=== PATIENT | female | born 1960 | race Caucasian/White ===

== ENCOUNTER 2020-04-19 11:41 | Day surgery (SDC) | payer OTHER ==
[~2020-04-19] VITALS: Ht 154.9 cm; Wt 84.1 kg
[2020-04-19 12:05] LABS: BASOPHILS 1.3 % (0-2); EOSINOPHILS 11.8 % (0-7); HEMATOCRIT 44.6 % (36.0-48.0); HEMOGLOBIN 13.8 g/dL (12-16); IMMATURE GRANULOCYTES 0.1 % (0-5); LYMPHOCYTES 30.7 % (15-50); MCH 29.2 pg (26.0-34.0); MCHC 30.9 g/dL (31.0-37.0); MCV 94.5 fL (80.0-100.0); MEAN PLATELET VOLUME 9.2 fL (7.4-10.4); MONOCYTES 6.1 % (2-11); PLATELET COUNT 285 10x3/uL (130-400); RBC 4.72 10x6/uL (4.00-5.40); RDW 13.4 % (11.5-14.5); WBC 6.9 10x3/uL (4.8-10.8)
[2020-04-19 12:14] LABS: CALC OSMOLALITY 276 mosm/kg (275-300); CALCIUM 8.9 mg/dL (8.5-10.1); CHLORIDE - SERUM 105 mmol/L (98-107); CREATININE - SERUM 0.8 mg/dL (0.6-1.3); GLUCOSE 98 mg/dL (74-106); POTASSIUM - SERUM 3.9 mmol/L (3.5-5.1); SODIUM 140 mmol/L (136-145); UREA NITROGEN 8 mg/dL (7-18); eGFR NON AFRICAN AMERICAN 78 mL/min (90-120)
[2020-04-19] MEDS ORDERED: CO Q-10400 MG PO (12:44)
[2020-04-19] MEDS ORDERED: VITAMIN C500 MG PO (12:44)
[2020-04-19] MEDS ORDERED: CITRACAL + D E1 EACH PO (12:45)
[2020-04-19] MEDS ORDERED: NASONEX NASAL S17 GM NS (12:45)
[2020-04-19] MEDS ORDERED: KRILL OIL 1,001 EAC1 PO (12:45)
[2020-04-19] MEDS ORDERED: MERIBIN5 MG PO (12:46)
[2020-04-19] MEDS ORDERED: CLARITIN 10 MG10 MG PO (12:46)
[2020-04-19] MEDS ORDERED: PROBIOTIC1 EAC1 PO (12:46)
[2020-04-19] MEDS ORDERED: SUPER B COMPLE1 EAC1 PO (12:47)
[2020-04-19] MEDS ORDERED: ADVAIR 250-501 EAC1 INH (12:47)
[2020-04-19] MEDS ORDERED: FEXOFENADINE HC60 MG PO (12:48)
[2020-04-19] MEDS ORDERED: TIROSINT112 MCG PO (12:48)
[2020-04-19] MEDS ORDERED: IPRAT-ALBUT 0.5-3 ML UPD (12:49)
[2020-04-19] MEDS ORDERED: PROAIR HFA8.5 G1 INH (12:49)
[2020-04-19 12:50] VITALS: BP 127/65; Ht 154.9 cm; Wt 84.1 kg
--- NOTE | 2020-04-19 14:52 | NUR ---
1450 DR. BRIANNA JONES.
--- NOTE | 2020-04-20 15:39 | OP ---
PATIENT NAME: JULIO C CHAUDHARI MEDICAL RECORD: [id number] :62 LOCATION:[facility] ADMISSION DATE: SURGEON: KIM REED DO DATE OF OPERATION: 04/19/2020 PROCEDURE: EGD with biopsies and injection. INDICATIONS FOR THE PROCEDURE: Dysphagia. SCOPE: Olympus video gastroscope. MEDICATIONS: Propofol 300 mg IV per anesthesia. ESTIMATED BLOOD LOSS: Minimal. COMPLICATIONS: None. FINDINGS: Informed consent was given. The patient was made comfortable with the above medication. After reaching an adequate level of sedation by slow IV push, the patient was placed on her left side. The endoscope was advanced under direct visualization through the mouth to the third portion of the duodenum. In the upper esophagus, there was a small plaque which could be a papilloma. It was removed using cold forceps and submitted for histopathology. Cold forceps biopsies were taken randomly from the upper to mid esophagus to rule out the presence of eosinophils based on the patient's history of dysphagia. 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 The segment was approximately 4 cm in length from 30-34 cm. Cold forceps, biopsies were taken at 33 cm and at 31 cm to submit for histopathology. There was no obvious dysplasia by endoscopic appearance. Both white light and NBI were used to evaluate the tissue. The endoscope was advanced beyond the GE junction into the stomach and retroflexed to view the cardia, where a small sliding hiatal hernia was present. There were no associated ulcers or other abnormalities with this hernia. The fundus and body of the stomach appeared normal. The antrum appeared normal. Cold forceps, biopsies were taken from the antrum and incisura to submit for histopathology and to rule out the presence of H. pylori. The endoscope was advanced beyond the pylorus into the duodenum. The duodenal bulb appeared normal. In the junction from the second to the third portion of the duodenum, there was a mass which measured approximately 2-3 cm in size. Multiple biopsies were taken from this mass and tattoo was injected both proximally and distally to this site for future interventions. Appearances were concerning for malignancy. The endoscope was then withdrawn from the patient. The patient tolerated the procedure well and there were no immediate complications. IMPRESSION: 1. Upper esophageal plaque/possible papilloma status post biopsies. 2. 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 3. Small sliding hiatal hernia. 4. Duodenal mass. PLAN AND RECOMMENDATIONS: 1. Discharge home when recovery parameters are met. 2. Follow up biopsy specimen results. 3. GERD diet and reflux precautions. OPERATIVE REPORT [id number] JULIO C CHAUDHARI 4. Continue current medications. 5. Omeprazole 40 mg capsule in the morning. 6. Further intervention of the duodenal mass will be dependent on results of biopsy specimens. This will likely need a referral to surgery for resection. 7. Consider CT abdomen and pelvis based on path results. 8. Consider surgical repair of the hiatal hernia, based on reflux and Baird esophagus along with dysphagia. TRANSINT:[id number] Voice Confirmation ID: [id number] DOCUMENT ID: [id number] KIM REED DO at 1539 CC: [id number] DICTATION DATE: 04/19/20 1452 CLERICAL ORDER FILLER: 04/20/20 0027 [facility] 04/19/20 [facility] [address] [place] [address]
== END 2020-04-19 15:40 | disposition home or self-care (01) ==
LOC: D.OPS 11:41
PROVIDERS: Anesthesiology; ATTEND Internal Medicine Gastroenterology
DX: R13.10 Dysphagia, unspecified (principal); J44.9 Chronic obstructive pulmonary disease, unspecified; E07.9 Disorder of thyroid, unspecified

== ENCOUNTER 2020-06-02 15:15 | Inpatient (IN) | payer OTHER ==
[~2020-06-02] VITALS: Ht 154.9 cm; Wt 118.7 kg
--- NOTE | ~2020-06-02 | OP ---
PATIENT NAME: JULIO C CHAUDHARI MEDICAL RECORD: [id number] :62 LOCATION[facility] D.2302 ADMISSION DATE:06/08/20 SURGEON: JOSE SUTTON MD DATE OF OPERATION: 06/08/2020 PREOPERATIVE DIAGNOSES: 1. Duodenal adenoma. 2. Gastroesophageal reflux disease. 3. Baird esophagus. 4. Chronic obstructive pulmonary disease. POSTOPERATIVE DIAGNOSES: 1. Duodenal adenoma. 2. Gastroesophageal reflux disease. 3. Baird esophagus. 4. Chronic obstructive pulmonary disease. PROCEDURE: 1. Juan A fundoplication. 2. Whipple procedure. SURGEON: Jose Sutton MD REPORT OF PROCEDURE: The patient's abdomen was prepped and draped in sterile fashion. A skin incision was made in the midline. Electrocautery was used to dissect through the subcutaneous tissues and fascia until we entered the abdominal cavity. The preperitoneal fat pad was removed including the falciform ligament. Once we had this in place, we could visualize the patient's abdominal cavity. The patient had a very large liver which had some fatty infiltrate to it. There are no signs of cirrhotic changes. We were able to manipulate the left lobe of the liver and take down the triangular ligament so we can mobilize this left lobe more medially. When doing this, I could feel the patient's NG tube in position penetrating past the esophagus into the stomach and went ahead and took down the lesser omentum using electrocautery and the EnSeal device. We then took down the superior third short gastrics using the EnSeal device and at this point, we could manipulate the patient's stomach and we got underneath it. I was able to take down any attachments around the patient's GE junction. Once we did this, we could see the distal end of the patient's esophagus easily rested in the abdominal cavity. There did not appear to be much in the way of a hiatal hernia. I went ahead and reapproximated the esophageal hiatus with interrupted 2-0 Ethilon times 3. We then performed a 360-degree posterior wrap of the fundus of the stomach around the distal esophagus. This was done with interrupted 0 Polydeks times 3. The wrap did not appear to be very tight and everything appeared to rest in good position. At this point, we began our Whipple procedure. We started out by doing a dome down cholecystectomy. We did this by taking down the attachments over the gallbladder and then taking the dome of the gallbladder down off of the liver bed down to the cystic structures. The cystic duct and cystic artery were found, the cystic artery was clipped twice distally and once proximally and ligated in standard fashion. The cystic duct was clipped once proximally and twice distally and also ligated. This was then sent off for permanent specimen. We dissected out the patient's common bile duct and was able to find it. It penetrated down towards the duodenum and pancreas. We were able to dissect out the common hepatic duct just above the patient's cystic duct. We then went more medially and was able to find the patient's portal vein and this was protected and we also found the OPERATIVE REPORT [id number] JULIO C CHAUDHARI gastroduodenal artery and all of its branching vessels. The gastroduodenal artery was ligated with clips and a 3-0 silk tie. We then performed a Elizabeth maneuver of the duodenum, and at this point, we could see the tattooing that have been done on the second and third portion of the duodenum. We were able to mobilize this portion of the duodenum up including the head of the pancreas. We then entered the lesser sac by dissecting the omentum off of the patient's transverse colon and then penetrating underneath the stomach using an EnSeal device. With this, we could see the pancreas more clearly and we were able to score the peritoneum overlying this and I was able to bluntly dissect over the portal vein just below the neck of the pancreas. A Tammy was then placed into this space. We then transected the patient's stomach using a 75 green load LUCINDA stapler, removing the antrum of the stomach. The mesentery that was left was tied off with 3-0 silks. We then transected the pancreas using electrocautery and then transected the patient's bile duct using Metzenbaum scissors. We then found the ligament of Treitz and was able to find a section of small bowel about 8 cm past this. We made a small window at the mesentery and transected this small bowel with a 75 blue load LUCINDA stapler. The mesentery was then taken down with sequential clamp and tie technique and also with Harmonic scalpel. We were able to eventually eviscerate this small bowel through the ligament of Treitz into the lesser sac. At this point, we were able to take down the final attachments of the pancreas off the patient's portal vein, and at this time, the specimen was completely freed up and sent off for frozen evaluation. I had them look to see if the mass was present in the duodenum and I found a 2.6 cm adenomatous polyp present. We then irrigated the abdominal cavity out. The small bowel was transected about 30 cm downstream using a 75 blue load LUCINDA stapler and the mesentery was taken down with 3-0 silk ties. We then went about 45 cm down the downstream of the small bowel and performed a jejunojejunostomy in a nimf-gz-pzyx fashion using a 75 blue load LUCINDA stapler. The enterotomies were closed off with a 30 blue load TA stapler and oversewed the staple lines with 3-0 silks. At this point, I noticed that the small bowel, Wilma limb was actually a little bit swollen and congested appearing. I could feel a pulse at the base of this and we were able to find signals throughout the mesentery of this piece of bowel. We figured there was just some venous congestion that was present. We went ahead and made 2 openings in the mesentery of the transverse colon with care taken not to injure the vasculature. We brought up the Wilma limb through the right side and we also brought the other end through the left side. We performed a wkhm-zl-maqb anastomosis of the loop of small bowel to the posterior aspect of the patient's stomach using a 75 green load LUCINDA stapler. The enterotomies were closed off with a 30 green load TA stapler and we oversewed the staple line using some Lemberted 3-0 silks. The NG tube was noted to be in good position away from the staple line. We then laid the bowel out for our pancreatic and biliary anastomoses. This section of bowel was swollen, but had peristalsis and had pulsations. We went ahead and made a small opening at the apex of this and performed an end-to-side anastomosis of the common hepatic duct to the small bowel using multiple 4-0 PDS. We then placed 3-0 silks around the distal aspect of the patient's pancreas. I made a small opening in the middle of this. We dilated the pancreatic duct, which was very small and performed an end-to-side anastomosis of the pancreatic duct to the small bowel using interrupted 5-0 Monocryl. We then tied down all of the 3-0 silks tightly. We irrigated out the abdomen one last time to assure there was no sign of any active bleeding, which we did not find. At this point, the bowel appeared to be a little less congested and continued to have good pulsations at its base. There was some bleeding from one of the staple lines distally, which was treated with electrocautery. At this point, I felt confident with that section of the bowel. 19 round Devyn drains were inserted in the bilateral OPERATIVE REPORT [id number] WATSONJULIO CMACI TUCKER upper quadrants with the one on the right side placed below the multiple anastomoses and one on the left side placed above the anastomosis. These were both sutured into place with 3-0 nylons. The midline fascia was closed with running #1 loop PDS times 2. The subcutaneous tissues were irrigated out and reapproximated with interrupted 3-0 Vicryl and the skin was closed with fabio. COMPLICATIONS: None. CONDITION: Stable. ANESTHESIA: General endotracheal. BLOOD LOSS: 750 mL. TRANSINT:[id number] Voice Confirmation ID: [id number] DOCUMENT ID: [id number] JOSE SUTTON MD CC: NOE HEAD MD and KIM REED DO [id number] DICTATION DATE: 06/08/20 1438 ACID BLOWER: 06/09/20 0000 DIS IN 06/21/20 [facility] [address] [place] [address]
[~2020-06-02 15:15] MED LIST: ADVAIR 250-501 EAC1 INH; CITRACAL + D E1 EACH PO; CLARITIN 10 MG10 MG PO; CO Q-10400 MG PO; FEXOFENADINE HC60 MG PO; IPRAT-ALBUT 0.5-3 ML UPD; KRILL OIL 1,001 EAC1 PO; MERIBIN5 MG PO; NASONEX NASAL S17 GM NS; PROAIR HFA8.5 G1 INH; PROBIOTIC1 EAC1 PO; SUPER B COMPLE1 EAC1 PO; TIROSINT112 MCG PO; VITAMIN C500 MG PO
[2020-06-04 11:40] LABS: CALC OSMOLALITY 276 mosm/kg (275-300); CALCIUM 8.7 mg/dL (8.5-10.1); CARBON DIOXIDE 30.5 mmol/L (21.0-32.0); CHLORIDE - SERUM 103 mmol/L (98-107); CREATININE - SERUM 0.7 mg/dL (0.6-1.3); GLUCOSE 94 mg/dL (74-106); POTASSIUM - SERUM 3.7 mmol/L (3.5-5.1); SODIUM 139 mmol/L (136-145); UREA NITROGEN 9 mg/dL (7-18); eGFR NON AFRICAN AMERICAN > 90 mL/min (90-120)
[2020-06-04 12:29] LABS: BASOPHILS 0.6 % (0-2); EOSINOPHILS 16.6 % (0-7); HEMATOCRIT 43.9 % (36.0-48.0); HEMOGLOBIN 13.8 g/dL (12-16); IMMATURE GRANULOCYTES 0.3 % (0-5); LYMPHOCYTES 28.9 % (15-50); MCH 29.4 pg (26.0-34.0); MCHC 31.4 g/dL (31.0-37.0); MCV 93.4 fL (80.0-100.0); MEAN PLATELET VOLUME 9.6 fL (7.4-10.4); MONOCYTES 6.1 % (2-11); NEUTROPHILS 47.5 % (40-80); PLATELET COUNT 285 10x3/uL (130-400); RDW 13.8 % (11.5-14.5); WBC 6.6 10x3/uL (4.8-10.8)
[2020-06-08] VITALS (23 sets, daily range): BP systolic 73–128; BP diastolic 24–77; BMI 35.9; BMI 39.7
[2020-06-08] MEDS ORDERED: OMEPRAZOLE20 M1 PO (08:00)
--- NOTE | 2020-06-08 15:25 | NUR ---
DR SUTTON AT BEDSIDE AT THIS TIME. VERBAL ORDERS FOR 1000ML NS BOLUS. NOTED THAT PATIENT HAS ONLY PRODUCED 100ML OF URINE SINCE START OF PROCEDURE. LEVOPHED GTT INFUSING AT 12MCG/MIN.
--- NOTE | 2020-06-08 16:00 | NUR ---
REPORT RECEVIECD. SEE FLOW SHEET. PT RESPONDS TO VERBAL STIMULI. PT HAS A HISTORY OF SLEEP APNEA. PT SNORING AND WILL DESAT TO 80'S ON NC. CHANGED TO SIMPLE MASK. MIDLINE INCISION DRESSING C/D/I. LUIS NOTED TO LEFT AND RIGHT ABD WITH BLOODY DRAINGE. COMPRESSED. VSS. CALL LIGHT INR EACH. WILL CONT POC.
--- NOTE | 2020-06-08 23:49 | NUR ---
1900 PT RESTING IN BED. EASILY AROUSED WITH VERBAL STIMULATION. OBEYS COMMANDS. O2 @ 13L PER OXYMASK. SPO2 94% TACHYPNEIC AND LABORED. LEVOPHED GTT NOTED. MAP 63. NO URINE IN FC AT THIS TIME. PT IS TACHYCARDIC IN 120S NSR. ABD IS DISTENDED WITH MIDLINE DRESSING INTACT. BILATERAL LUIS DRAINS NOTED. R LUIS = 20 ML BLOODY DRAINAGE. L LUIS =60 ML BLOODY DRAINAGE EMPTIED. 2229 PT IS TACHYPNEIC WITH LABORED RESPIRATIONS ON HOME TRILOGY AT 12L. TOTAL URINE OUTPUT FOR THIS SHIFT IS 25 ML OF CONCENTRATED URINE. NO CHANGE IN LOC AT THIS TIME. 2229 DR SUTTON NOTIFIED OF ABG AND PT RESPIRATORY STATUS. NEW ORDERS RECEIVED
[2020-06-09] VITALS (57 sets, daily range): BP systolic 61–129; BP diastolic 37–77; BMI 39.6
[2020-06-09 06:18] LABS: BASOPHILS 0.1 % (0-2); EOSINOPHILS 0 % (0-7); HEMATOCRIT 39.3 % (36.0-48.0); HEMOGLOBIN 12.3 g/dL (12-16); IMMATURE GRANULOCYTES 0.3 % (0-5); LYMPHOCYTES 12.2 % (15-50); MCH 29.4 pg (26.0-34.0); MCHC 31.3 g/dL (31.0-37.0); MONOCYTES 6.2 % (2-11); NEUTROPHILS 81.2 % (40-80); PLATELET COUNT 331 10x3/uL (130-400); RBC 4.18 10x6/uL (4.00-5.40); RDW 13.9 % (11.5-14.5)
[2020-06-09 06:20] LABS: BILIRUBIN - TOTAL 0.4 mg/dL (0.2-1.3); CARBON DIOXIDE 19.3 mmol/L (21.0-32.0); CREATININE - SERUM 1.7 mg/dL (0.6-1.3); MAGNESIUM - SERUM 1.4 mg/dL (1.8-2.4); PROTEIN - SERUM 4.9 g/dL (6.4-8.2)
[2020-06-09 06:46] LABS: CALCIUM 6.5 mg/dL (8.5-10.1); POTASSIUM - SERUM 6.3 mmol/L (3.5-5.1)
--- NOTE | 2020-06-09 06:48 | NUR ---
RECEIVED CRITICAL LAB K+ 6.3, CA 6.[address] SUTTON. NO ANSWER AT THIS TIME. WILL ATTEMPT TO PAGE HIM AND INFORM ON COMING SHIFT NURSE OF LABS AND COMMUNICATIONS
--- NOTE | 2020-06-09 09:58 | NUR ---
PATIENT BP80/49. HR 130'S. 1000ML BOLUS SALINE COMPLETED. GETTING MAGNESIUM SUPPLEMENTED.SPOKE WITH DR SUTTON ON PHONE GAVE ABOVE INFORMATION. NEW ORDER RECEIVED TO GIVE ADDITONAL BOLUS OF 1000 ML SALINE AND WAIT FOR ECHO.
--- NOTE | 2020-06-09 10:15 | NUR ---
TRANSDERM SCOP DCD AND REMOVED FROM POSTERIOR LEFT EAR.
--- NOTE | 2020-06-09 13:34 | NUR ---
ASSUMED CARE FOR THIS PT. AT BEDSIDE ASSESSING PT. PTS BP HAS BEEN HYPOTENSIVE ALL DAY AND MAXED OUT ON LEVOPHED. HAS ORDERED NEW LABS AND BELIEVES PT IS JUST DRY, LOW URINE OUTPUT BUT SHE IS MAKING URINE. MILKED BILAT LUIS DRAINS AND THEY ARE TO SUCTION BULB. PT RESTING QUIETLY AND WILL RESPOND BUT VERY LETHARGIC/DROWSY. ART LINE GIVING VARIOUS READINGS. I REPOSITIONED IT AND ZEROED IT OUT AND STILL DOESNT ADD UP TO BELIEVABLE READINGS. MANUAL BP DONE AND BP 97/45 MAP 67. WILL CONTINUE WITH THEM FOR ACCURACY. NO IMMEDIATE NEEDS NOTED AT THIS TIME. WILL CPOC.
[2020-06-09 13:41] LABS: ALBUMIN 1.6 g/dL (3.4-5.0); ANION GAP 11.8 mmol/L (8-16); BILIRUBIN - TOTAL 0.22 mg/dL (0.2-1.3); CARBON DIOXIDE 19.9 mmol/L (21.0-32.0); CREATININE - SERUM 2.1 mg/dL (0.6-1.3); PHOSPHOROUS 4.6 mg/dL (2.5-4.9); POTASSIUM - SERUM 5.7 mmol/L (3.5-5.1); PROTEIN - SERUM 4.4 g/dL (6.4-8.2)
[2020-06-09 13:42] LABS: MAGNESIUM - SERUM 2.6 mg/dL (1.8-2.4)
[2020-06-09 13:43] LABS: CALCIUM 6.5 mg/dL (8.5-10.1)
[2020-06-09 13:53] LABS: HEMATOCRIT 36.2 % (36.0-48.0); MCH 29.3 pg (26.0-34.0); MCHC 30.4 g/dL (31.0-37.0); MCV 96.5 fL (80.0-100.0); MEAN PLATELET VOLUME 9.9 fL (7.4-10.4); PLATELET COUNT 365 10x3/uL (130-400); RBC 3.75 10x6/uL (4.00-5.40); WBC 21.9 10x3/uL (4.8-10.8)
[2020-06-09 14:17] LABS: LYMPHOCYTES 21 % (15-50); MONOCYTES 12 % (2-11); NEUTROPHILS 61 % (40-80); PLATELET ESTIMATE NORMAL
[2020-06-09 14:29] LABS: APTT 32.1 SECONDS (22.8-39.4); INR 1.31 (0.85-1.17); PROTIME 16.2 SECONDS (11.6-15.0)
--- NOTE | 2020-06-09 14:48 | NUR ---
ATTEMPTED TO GET PT OFF HER BIPAP HOWEVER SHE COULDNT MAINTAIN PULSE OX >90% WITH NC. TALKED WITH PT AND SHE VERBALIZED UNDERSTANDING AND BIPAP IS BACK IN PLACE. BP STILL HYPOTENSIVE BUT MAP ABOVE 60 AT THIS TIME. PT DENIES ANY PAIN OR NEEDS. REPOSITIONED HER IN BED TO RELIEVE PRESSURE. NO CHANGES IN FLUIDS OR DRIP AT THIS TIME. WILL CTM.
--- NOTE | 2020-06-09 17:19 | NUR ---
BP STILL RUNNING LOW. NEW MEDICATIONS ORDERED PER . INITIATED PTS BICARB DRIP PER LAST ABG FINDINGS. AT BEDSIDE AND CHECKING ON PT AGAIN. PT ONLY HAD 150CC OF URINE OUTPUT TODAY. MAP IS STAYING ABOVE 60. WILL CONTINUE TO TREAT AND HOPEFULLY WITH THE NEW MEDICATION ADDITIONS HER BP WILL GET BETTER AND URINE OUTPUT. PT REMAINS ON BIPAP AND PULSE OX IS 100%. PT IS EASY TO AWAKEN AND WILL COMMUNICATE BUT REMAINS RESTING AND NOT MOVING MUCH. PT DENIES ANY CURRENT PAIN OR NEEDS. LAST TEMP 99.1 AXCILLARY WILL KEEP AN EYE ON THAT AND ADMINISTER PRN TYLENOL IF NEEDED.
[2020-06-10] VITALS (71 sets, daily range): BP systolic 83–128; BP diastolic 29–98; Ht 154.9 cm; Wt 118.7 kg
[2020-06-10 05:17] LABS: BASOPHILS 0.1 % (0-2); EOSINOPHILS 0.2 % (0-7); HEMATOCRIT 29.4 % (36.0-48.0); HEMOGLOBIN 8.7 g/dL (12-16); IMMATURE GRANULOCYTES 0.4 % (0-5); LYMPHOCYTES 13.9 % (15-50); MCH 28.8 pg (26.0-34.0); MCHC 29.6 g/dL (31.0-37.0); MCV 97.4 fL (80.0-100.0); MONOCYTES 6.2 % (2-11); NEUTROPHILS 79.2 % (40-80); PLATELET COUNT 307 10x3/uL (130-400); RBC 3.02 10x6/uL (4.00-5.40); RDW 14.4 % (11.5-14.5)
[2020-06-10 05:18] LABS: ALBUMIN 1.3 g/dL (3.4-5.0); BILIRUBIN - TOTAL 0.25 mg/dL (0.2-1.3); CARBON DIOXIDE 22.2 mmol/L (21.0-32.0); CREATININE - SERUM 2.5 mg/dL (0.6-1.3); MAGNESIUM - SERUM 2.5 mg/dL (1.8-2.4); PHOSPHOROUS 3.6 mg/dL (2.5-4.9)
[2020-06-10 05:39] LABS: ANION GAP 11.5 mmol/L (8-16); POTASSIUM - SERUM 4.7 mmol/L (3.5-5.1)
[2020-06-10 05:41] LABS: CALCIUM 5.9 mg/dL (8.5-10.1)
--- NOTE | 2020-06-10 07:00 | NUR ---
MONITOR SHOWING SVT 200'S, SBP 50', CARDIOLOGY PAGED AND NEW ORDER GIVEN FOR ADENOSINE 6MG IVP, CRASH CART AT BEDSIDE, HR ELEVATED ORDER TO INTUBATE GIVEN ANESTHESIOLOGIST CALLED FOR INTUBATION, SIZE 8 TUBE AT 21 CM LL,
--- NOTE | 2020-06-10 08:22 | NUR ---
Nutrition follow-up: Chart reviewed Labs reviewed will continue current TPN formula today RDN following.
--- NOTE | 2020-06-10 09:30 | NUR ---
MORNING MEDS GIVEN PER ORDER
--- NOTE | 2020-06-10 09:50 | NUR ---
PC FROM SISTER REMBERTO MEREDITH, SECURITY CODE OBTAINED AND STATUS UPATE GIVEN, DISCUSSED CHANGE IN STATUS, NO OTHER NEEDS AT THIS TIME: HER PHONE NUMBER IS [phone] PC FROM DAUGHTER NETTE SECURITY CODE OBTAINED AND STATUS UPDATED, NOTIFIED OF CHANGES STATED THAT DAD WORKS NIGHT AND SHE WILL UPDATE HIM. [phone]
--- NOTE | 2020-06-10 10:35 | NUR ---
MORNING LABS DRAWN BY HD NURSE AND SENT TO LAB
--- NOTE | 2020-06-10 11:30 | NUR ---
P FROM DR. BARTON NEW ORDER GIVEN, 2 AMPS BICARB
--- NOTE | 2020-06-10 11:43 | NUR ---
2 AMPS BICARB GIVEN PER ORDER
--- NOTE | 2020-06-10 14:40 | NUR ---
DR SUTTON AT BEDSIDE, REVIEWED ABG'S, NOTIFIED OF LEFT ARM SWELLING, BP CUFF OFF AND TO RIGHT LEG, KARI WORING AFTER FLUSHING COMPLETED
[2020-06-11] VITALS (90 sets, daily range): BP systolic 45–156; BP diastolic 27–96
[2020-06-11 11:44] LABS: ALBUMIN 1.3 g/dL (3.4-5.0); BILIRUBIN - TOTAL 0.75 mg/dL (0.2-1.3); CREATININE - SERUM 1.9 mg/dL (0.6-1.3); MAGNESIUM - SERUM 2.2 mg/dL (1.8-2.4); PROTEIN - SERUM 3.8 g/dL (6.4-8.2); VANCOMYCIN - RANDOM 12.2 ug/mL (10.0-20.0)
[2020-06-11 11:50] LABS: BASOPHILS 0.2 % (0-2); IMMATURE GRANULOCYTES 0.2 % (0-5); LYMPHOCYTES 15.7 % (15-50); MCH 28.4 pg (26.0-34.0); MCHC 30.2 g/dL (31.0-37.0); MEAN PLATELET VOLUME 9.7 fL (7.4-10.4); MONOCYTES 8.9 % (2-11); RBC 2.25 10x6/uL (4.00-5.40); RDW 14.8 % (11.5-14.5); WBC 10.6 10x3/uL (4.8-10.8)
[2020-06-11 11:51] LABS: HEMATOCRIT 21.2 % (36.0-48.0); HEMOGLOBIN 6.4 g/dL (12-16); MCV 94.2 fL (80.0-100.0); PLATELET COUNT 209 10x3/uL (130-400)
[2020-06-11 11:52] LABS: ANION GAP 7.5 mmol/L (8-16); CALCIUM 6.4 mg/dL (8.5-10.1); CARBON DIOXIDE 28.9 mmol/L (21.0-32.0); PHOSPHOROUS 2.2 mg/dL (2.5-4.9); POTASSIUM - SERUM 3.4 mmol/L (3.5-5.1)
--- NOTE | 2020-06-11 13:02 | NUR ---
Nutrition follow-up: TPN discontinued by Dr. Goldstein 2/2 elevated glucose. D5NS @ 100 ml/hr (408 kcal) Labs reviewed Pt remains intubated, sedated Unable to start TF 2/2 Whippmargaret, Juan A RDN following.
--- NOTE | 2020-06-11 18:15 | NUR ---
5988-UZANXFYH-UPG FLOW SHEET-NOTED L HAND-IV SITE INFILTRATED WITH SKIN BLISTER AND TEAR-DR QUIROZ PRESENT-AND SHOWN SAME-BICARB IV D/C'D-REMAINDER IVS IN R IJ- 814-NOTED AFLUTTER 139-CARDIOLOGY MAJOR GIFTS MANAGER NOTIFIED- 914-RETURN CALL REICVED-PT SELF CONVERTED TO SR-STATUS REPORT GIVEN 1030-LAB DRAWN 1200-DR BARTON AT BEDSIDE-ORDER REVIEVED FOR PRBC -CONFIRMED JAHOVAH WITNESS AND NO BLOOD PRODUCTS-PT ABLE TO APPROPRIATELY NOD YES AND NO TO QUESTIONS-ALBUMIN HELD WELL 1500-DAUGHTER CALLED FOR UPDATE-SAME GIVEN-FOCUSED ON BLOOD COUNT-CONFIRMED JAHOVAH WITNESS WITH NO BLOOD PRODUCTS 1814-DR SUTTON AT BEDSIDE -CURRENT STATUS REPORT GIVEN-CONTINUE CURRENT TPN
--- NOTE | 2020-06-11 23:31 | NUR ---
1899-BEDSIDE REPORT RECEIVED FROM OFF GOING RN. IVF, RATES, VENT, DRAINS AND WOUNDS ASSESSED. PT CONNECTED TO FRONT DESK WORKER WITH ALARM LIMITS SET. PT PLEASANT AND COMMUNICATES WITH HEAD NOD AND MAKES HER NEEDS KNOWN. WILL CONT. TO MONITOR. 1999-RIGHT RADIAL ART LINE WITH POOR WAVE FORM. WILL MONITOR WITH CUFF PRESSURES. 2205-DAUGHTER NETTE CALLED UNIT FOR PT UPDATE. MINIMAL INFO GIVEN AND VERBAL REASSURANCE ALSO GIVEN.
[2020-06-12] VITALS (107 sets, daily range): BP systolic 79–177; BP diastolic 48–101
[2020-06-12 05:13] LABS: BASOPHILS 0.1 % (0-2); EOSINOPHILS 0.1 % (0-7); IMMATURE GRANULOCYTES 0.3 % (0-5); LYMPHOCYTES 11.3 % (15-50); MCHC 30.8 g/dL (31.0-37.0); MCV 94.3 fL (80.0-100.0); MEAN PLATELET VOLUME 9.5 fL (7.4-10.4); MONOCYTES 9.3 % (2-11); NEUTROPHILS 78.9 % (40-80); PLATELET COUNT 233 10x3/uL (130-400); RDW 15.2 % (11.5-14.5); WBC 12.3 10x3/uL (4.8-10.8)
[2020-06-12 05:14] LABS: HEMATOCRIT 19.8 % (36.0-48.0); HEMOGLOBIN 6.1 g/dL (12-16)
[2020-06-12 05:27] LABS: ALBUMIN 1.3 g/dL (3.4-5.0); ANION GAP 8.9 mmol/L (8-16); BILIRUBIN - TOTAL 1.01 mg/dL (0.2-1.3); CARBON DIOXIDE 28.3 mmol/L (21.0-32.0); CREATININE - SERUM 1.6 mg/dL (0.6-1.3); MAGNESIUM - SERUM 2.5 mg/dL (1.8-2.4); PHOSPHOROUS 2.3 mg/dL (2.5-4.9); POTASSIUM - SERUM 3.2 mmol/L (3.5-5.1); PROTEIN - SERUM 4.5 g/dL (6.4-8.2); VANCOMYCIN - RANDOM 17.5 ug/mL (10.0-20.0)
[2020-06-12 05:29] LABS: CALCIUM 6.8 mg/dL (8.5-10.1)
[2020-06-13] VITALS (79 sets, daily range): BP systolic 85–136; BP diastolic 6–80
[2020-06-13 05:18] LABS: BASOPHILS 0.2 % (0-2); EOSINOPHILS 0.2 % (0-7); HEMATOCRIT 20.6 % (36.0-48.0); IMMATURE GRANULOCYTES 0.6 % (0-5); LYMPHOCYTES 19.5 % (15-50); MCH 28.6 pg (26.0-34.0); MCHC 30.1 g/dL (31.0-37.0); MCV 94.9 fL (80.0-100.0); MEAN PLATELET VOLUME 9.4 fL (7.4-10.4); MONOCYTES 16.1 % (2-11); NEUTROPHILS 63.4 % (40-80); PLATELET COUNT 249 10x3/uL (130-400); RBC 2.17 10x6/uL (4.00-5.40); RDW 15.5 % (11.5-14.5)
[2020-06-13 05:25] LABS: WBC 6.4 10x3/uL (4.8-10.8)
[2020-06-13 05:26] LABS: HEMOGLOBIN 6.2 g/dL (12-16)
[2020-06-13 05:37] LABS: ALBUMIN 1.2 g/dL (3.4-5.0); BILIRUBIN - TOTAL 1.08 mg/dL (0.2-1.3); CALCIUM 7.3 mg/dL (8.5-10.1); CARBON DIOXIDE 28.5 mmol/L (21.0-32.0); CREATININE - SERUM 1.6 mg/dL (0.6-1.3); MAGNESIUM - SERUM 2.5 mg/dL (1.8-2.4); PROTEIN - SERUM 4.8 g/dL (6.4-8.2)
[2020-06-13 05:38] LABS: ANION GAP 9.3 mmol/L (8-16); PHOSPHOROUS 3.1 mg/dL (2.5-4.9); POTASSIUM - SERUM 3.8 mmol/L (3.5-5.1)
--- NOTE | 2020-06-13 07:48 | NUR ---
0700 REPORT RECIEVED AND CARE ASSUMED OF PATIENT SEE FLOW SHEET FOR SHIFT ASSESMENT FINDINGS..
[2020-06-14] VITALS (57 sets, daily range): BP systolic 90–142; BP diastolic 45–94
[2020-06-14 05:08] LABS: BILIRUBIN - TOTAL 0.91 mg/dL (0.2-1.3); CALCIUM 7.2 mg/dL (8.5-10.1); CARBON DIOXIDE 26.6 mmol/L (21.0-32.0); CREATININE - SERUM 1.6 mg/dL (0.6-1.3); MAGNESIUM - SERUM 2.3 mg/dL (1.8-2.4); PHOSPHOROUS 2.7 mg/dL (2.5-4.9); PROTEIN - SERUM 4.6 g/dL (6.4-8.2); VANCOMYCIN - RANDOM 12.2 ug/mL (10.0-20.0)
[2020-06-14 05:09] LABS: ANION GAP 7.6 mmol/L (8-16); POTASSIUM - SERUM 3.2 mmol/L (3.5-5.1)
[2020-06-14 05:39] LABS: BASOPHILS 0.1 % (0-2); EOSINOPHILS 0.1 % (0-7); IMMATURE GRANULOCYTES 1.7 % (0-5); MCH 28.4 pg (26.0-34.0); MCHC 29.9 g/dL (31.0-37.0); MCV 94.9 fL (80.0-100.0); MEAN PLATELET VOLUME 9.7 fL (7.4-10.4); MONOCYTES 8.8 % (2-11); NEUTROPHILS 77.3 % (40-80); PLATELET COUNT 248 10x3/uL (130-400); RDW 15.6 % (11.5-14.5)
[2020-06-14 06:03] LABS: WBC 10.5 10x3/uL (4.8-10.8)
[2020-06-14 06:04] LABS: HEMATOCRIT 18.7 % (36.0-48.0); HEMOGLOBIN 5.6 g/dL (12-16); RBC 1.97 10x6/uL (4.00-5.40)
--- NOTE | 2020-06-14 07:44 | NUR ---
Nutrition follow-up: Received consult from Dr. Menendez to restart TPN. Chart reviewed Labs reviewed TPN reordered to start @ 40 ml/hr RDN following.
--- NOTE | 2020-06-14 11:00 | NUR ---
RIGHT HAND COVERED WITH AN ABD PAD. PAD REMOVED LARGE SKIN TEAR NOTED. REDRESSED WITH ADAPTIC AND 4X4 AND PROSPER.
[2020-06-15] VITALS (85 sets, daily range): BP systolic 92–154; BP diastolic 42–100
--- NOTE | 2020-06-15 04:26 | NUR ---
0200 LEVO TITRATED DOWN AND HAS NOW BEEN TURNED OFF. PT BP 105/54 AT THIS TIME. WILL CONTINUE TO MONITOR
[2020-06-15 06:03] LABS: ALBUMIN 0.9 g/dL (3.4-5.0); ANION GAP 7.7 mmol/L (8-16); BILIRUBIN - TOTAL 0.66 mg/dL (0.2-1.3); CALCIUM 7.8 mg/dL (8.5-10.1); CARBON DIOXIDE 27.4 mmol/L (21.0-32.0); CREATININE - SERUM 1.6 mg/dL (0.6-1.3); MAGNESIUM - SERUM 2.5 mg/dL (1.8-2.4); PHOSPHOROUS 2.8 mg/dL (2.5-4.9); POTASSIUM - SERUM 3.1 mmol/L (3.5-5.1); PROTEIN - SERUM 4.8 g/dL (6.4-8.2); VANCOMYCIN - RANDOM 19.1 ug/mL (10.0-20.0)
[2020-06-15 06:23] LABS: BASOPHILS 0.4 % (0-2); EOSINOPHILS 0.1 % (0-7); LYMPHOCYTES 10.4 % (15-50); MCH 28.4 pg (26.0-34.0); MCHC 29.6 g/dL (31.0-37.0); MCV 96.1 fL (80.0-100.0); MEAN PLATELET VOLUME 10.1 fL (7.4-10.4); MONOCYTES 3.1 % (2-11); PLATELET COUNT 246 10x3/uL (130-400); RBC 2.04 10x6/uL (4.00-5.40); RDW 15.8 % (11.5-14.5)
[2020-06-15 07:21] LABS: WBC 13.8 10x3/uL (4.8-10.8)
[2020-06-15 07:22] LABS: HEMATOCRIT 19.6 % (36.0-48.0); HEMOGLOBIN 5.8 g/dL (12-16)
--- NOTE | 2020-06-15 07:52 | NUR ---
Nutrition follow-up: Chart reviewed Pt remains intubated, sedated TPN @ 40 ml/hr; intralipids 20% 250 Q 72 hrs. Labs reviewed; glucose, Mg elevated D5NS continues @ 100 ml/hr x 1000 ml TPN adjusted RDN will decrease D5NS to 50 ml/hr. Following.
--- NOTE | 2020-06-15 23:10 | MORECARE ---
CASE MANAGEMENT DISCHARGE SUMMARY PATIENT: JULIO C CHAUDHARI UNIT: [id number] ADM DATE: 06/08/20 AGE: 59 : 62 SEX: F ROOM/BED: D.2302 AUTHOR: LITO GUEVARA PHYSICIAN: REFERRING PHYSICIAN: PAPA SUTTON MD DATE OF SERVICE: 06/15/20 Discharge Plan Patient Name: JULIO C CHAUDHARI Facility: [facility]:[place] : 1960 Planned Disposition: Anticipated Discharge Date: Discharge Date: Expected LOS: Initial Reviewer: [email or web address] Initial Review Date: 06/08/2020 Generated: 06/16/20 12:09 am Patient Name: JULIO C CHAUDHARI Page [id number] at 2310 All edits/amendments must be made on the electronic document DICTATION DATE: 06/15/202308 FOREIGN LANGUAGE STENOGRAPHER: PRASHANT 06/15/202308 RPT#: [id number] DC DATE: STATUS: ADM IN [facility] [address] [place] [address] END OF REPORT
[2020-06-16] VITALS (25 sets, daily range): BP systolic 80–136; BP diastolic 5–95
--- NOTE | 2020-06-16 01:10 | NUR ---
PT HR INCREASED AND WAS BEEPING ON MONITOR. UPON CHECKING ON PT IN ROOM QUICKLY SHE IS AGITATED, PULLING AGAINST RESTRAINTS. INCREASED FENTYLE TO 450MCG/MIN AND GAVE VERSED PRN ORDERED. PT HR WENT INTO 150'S 160'S A.FIB WITH RVR. WILL NOTIFY CARDIOLOGY.
--- NOTE | 2020-06-16 01:25 | NUR ---
CARDIOLOGY CALLED BACK. I WANTED TO INFORM THEM OF PT GOING INTO A.FIB WITH RVR 150'S 160'S. SHE HOWEVER CONVERTED BACK TO NSR AT 84 RIGHT BEFOER THEY CALLED BACK. T.O TO CONTINUE TO MONITOR AND IF SHE GOES INTO A.FIB WITH RVR AGAIN AND DOES NOT CONVER TO START CARDIZEM DRIP AT 10MG/HR. T.O READ BACK CORRECT. WILL CONINTUE TO MONITOR
[2020-06-16 04:03] LABS: ALBUMIN 0.9 g/dL (3.4-5.0); ANION GAP 9.3 mmol/L (8-16); BILIRUBIN - TOTAL 0.56 mg/dL (0.2-1.3); CALCIUM 7.6 mg/dL (8.5-10.1); CARBON DIOXIDE 26.8 mmol/L (21.0-32.0); CREATININE - SERUM 1.6 mg/dL (0.6-1.3); MAGNESIUM - SERUM 2.1 mg/dL (1.8-2.4); PHOSPHOROUS 3.1 mg/dL (2.5-4.9); POTASSIUM - SERUM 3.1 mmol/L (3.5-5.1); PROTEIN - SERUM 4.7 g/dL (6.4-8.2); VANCOMYCIN - RANDOM 18.7 ug/mL (10.0-20.0)
[2020-06-16 04:22] LABS: BASOPHILS 0.1 % (0-2); EOSINOPHILS 0.1 % (0-7); LYMPHOCYTES 6.4 % (15-50); MCH 28.5 pg (26.0-34.0); MCHC 30.2 g/dL (31.0-37.0); MCV 94.3 fL (80.0-100.0); MEAN PLATELET VOLUME 10.1 fL (7.4-10.4); MONOCYTES 2.4 % (2-11); RDW 15.7 % (11.5-14.5)
[2020-06-16 04:32] LABS: HEMATOCRIT 18.2 % (36.0-48.0); HEMOGLOBIN 5.5 g/dL (12-16); PLATELET COUNT 300 10x3/uL (130-400); RBC 1.93 10x6/uL (4.00-5.40); WBC 18.5 10x3/uL (4.8-10.8)
--- NOTE | 2020-06-16 11:01 | NUR ---
Nutrition follow-up: Pt remains intubated, sedated CPAP trials today TPN infusing @ 40 ml/hr Labs reviewed; Lonnie bettencourt. Recommend K thanger Will continue current TPN formula RDN following.
[2020-06-17] VITALS (24 sets, daily range): BP systolic 58–166; BP diastolic 41–87
[2020-06-17 07:05] LABS: RBC 2.06 10x6/uL (4.00-5.40); WBC 22.5 10x3/uL (4.8-10.8)
[2020-06-17 07:06] LABS: HEMATOCRIT 19.1 % (36.0-48.0); HEMOGLOBIN 5.9 g/dL (12-16); MCH 28.6 pg (26.0-34.0); MCHC 30.9 g/dL (31.0-37.0); MCV 92.7 fL (80.0-100.0); MEAN PLATELET VOLUME 10.4 fL (7.4-10.4); PLATELET COUNT 352 10x3/uL (130-400); RDW 15.6 % (11.5-14.5)
[2020-06-17 07:11] LABS: ANION GAP 9.8 mmol/L (8-16); BILIRUBIN - TOTAL 0.66 mg/dL (0.2-1.3); CALCIUM 7.8 mg/dL (8.5-10.1); CARBON DIOXIDE 28.4 mmol/L (21.0-32.0); CREATININE - SERUM 1.3 mg/dL (0.6-1.3); MAGNESIUM - SERUM 2.1 mg/dL (1.8-2.4); PHOSPHOROUS 3.1 mg/dL (2.5-4.9); POTASSIUM - SERUM 3.2 mmol/L (3.5-5.1); PROTEIN - SERUM 4.9 g/dL (6.4-8.2)
--- NOTE | 2020-06-17 08:01 | NUR ---
Nutrition follow-up: Chart reviewed Labs reviewed; K still low Pt will wake to verbal stimulation and answers questions per surgeon TPN continues @ 40 ml/hr; intralipids 250 ml 20% q 72 hours Will continue current TPN and ask nursing to give K rider. RDN following.
[2020-06-17 09:07] LABS: LYMPHOCYTES 12 % (15-50); NEUTROPHILS 85 % (40-80); PLATELET ESTIMATE NORMAL
--- NOTE | 2020-06-17 18:42 | NUR ---
pATIENT EXTUBATED AT 1050 THIS AM AND PLACED IN BIPAP NO PROBLEMS NOTED.
[2020-06-18] VITALS (24 sets, daily range): BP systolic 134–169; BP diastolic 62–92
[2020-06-18 05:19] LABS: BASOPHILS 0.1 % (0-2); EOSINOPHILS 0.1 % (0-7); HEMATOCRIT 20.9 % (36.0-48.0); IMMATURE GRANULOCYTES 1.5 % (0-5); LYMPHOCYTES 6.7 % (15-50); MCH 28.4 pg (26.0-34.0); MCHC 30.1 g/dL (31.0-37.0); MCV 94.1 fL (80.0-100.0); MEAN PLATELET VOLUME 10.3 fL (7.4-10.4); MONOCYTES 2.6 % (2-11); PLATELET COUNT 350 10x3/uL (130-400); RBC 2.22 10x6/uL (4.00-5.40); RDW 15.7 % (11.5-14.5); WBC 23.9 10x3/uL (4.8-10.8)
[2020-06-18 05:24] LABS: HEMOGLOBIN 6.3 g/dL (12-16)
[2020-06-18 05:27] LABS: ALBUMIN 1.2 g/dL (3.4-5.0); ANION GAP 5.7 mmol/L (8-16); BILIRUBIN - TOTAL 0.65 mg/dL (0.2-1.3); CALCIUM 7.7 mg/dL (8.5-10.1); CARBON DIOXIDE 33.8 mmol/L (21.0-32.0); CREATININE - SERUM 1.2 mg/dL (0.6-1.3); POTASSIUM - SERUM 3.5 mmol/L (3.5-5.1); PROTEIN - SERUM 5.1 g/dL (6.4-8.2)
[2020-06-18 05:31] LABS: PHOSPHOROUS 4.3 mg/dL (2.5-4.9)
--- NOTE | 2020-06-18 09:31 | NUR ---
Nutrition follow-up: Pt now extubated; BIPAP TPN continues @ 40 ml/hr; intralipids 20% 250 ml Q 72 hours Labs reviewed Wt: 261# Will continue with current TPN formula RDN following.
--- NOTE | 2020-06-18 10:49 | NUR ---
Unable to get temp underarm. Pt's skin cool to touch. Bear hugger provided at this time.
--- NOTE | 2020-06-18 11:27 | NUR ---
OT NOTE: PT EXTUBATED YESTERDAY.. ON BI PAP TODAY. WILL ATTEMPT EVAL AT LATER DATE. GEORGI LUCERO, OTR/L
--- NOTE | 2020-06-18 13:51 | NUR ---
Off bipap at this time. Placed on 3L of O2 via high flow nc. Opens eyes and shakes head no when asked if she is hurting. Will continue to monitor.
--- NOTE | 2020-06-18 15:15 | NUR ---
Pt on 2L high flow nc. Tachypnea noted at this time. O2 sat dropped to 70's. Placed back on BIPAP at 50% fio2. Will continue to monitor.
--- NOTE | 2020-06-18 17:22 | NUR ---
Spoke with Dr. Garcia regading breathing rate being 30-40s, HR 120S. Orders received.
--- NOTE | 2020-06-18 19:15 | MORECARE ---
CASE MANAGEMENT DISCHARGE SUMMARY PATIENT: JULIO C CHAUDHARI UNIT: [id number] ADM DATE: 06/08/20 AGE: 59 : 62 SEX: F ROOM/BED: D.2302 AUTHOR: LITO GUEVARA PHYSICIAN: REFERRING PHYSICIAN: PAPA SUTTON MD DATE OF SERVICE: 06/18/20 Discharge Plan Patient Name: JULIO C CHAUDHARI Facility: [facility]:[place] : 1960 Planned Disposition: Anticipated Discharge Date: Discharge Date: Expected LOS: Initial Reviewer: [email or web address] Initial Review Date: 06/08/2020 Generated: 06/18/20 8:15 pm Last DP export: 06/15/20 10:10 p Patient Name: JULIO C CHAUDHARI Page [id number] at 191 All edits/amendments must be made on the electronic document DICTATION DATE: 06/18/201914 RESEARCH PSYCHOLOGIST: PRASHANT 06/18/201914 RPT#: [id number] DC DATE: STATUS: ADM IN [facility] [address] [place] [address] END OF REPORT
--- NOTE | 2020-06-18 19:28 | MORECARE ---
CASE MANAGEMENT DISCHARGE SUMMARY PATIENT: JULIO C CHAUDHARI UNIT: [id number] ADM DATE: 06/08/20 AGE: 59 : 62 SEX: F ROOM/BED: D.2302 AUTHOR: LITO GUEVARA PHYSICIAN: REFERRING PHYSICIAN: PAPA SUTTON MD DATE OF SERVICE: 06/18/20 Discharge Plan Patient Name: JULIO C CHAUDHARI [facility] [facility] 1960 Planned Disposition: Anticipated Discharge Date: Discharge Date: Expected LOS: Initial Reviewer: [email or web address] Initial Review Date: 06/08/2020 Generated: 06/18/20 8:27 pm DCPIA - Discharge Planning Initial Assessment Updated by [email or web address]: Lizette Barragan on 06/18/20 7:22 pm * How many steps to enter\exit or inside your home? * PCP Jose HEAD * Pharmacy [facility] * Preadmission Environment Home with Family * ADLs Independent * Equipment Ostomy Supplies * Other Equipment ROLLATOR, 02 CONS, TRILOGY * List name and contact numbers for known caregivers / representatives who currently or will assist patient after discharge: NETTE DELGADO - [place] - [phone] * Verbal permission to speak to the caregivers and representatives has been obtained from the patient. Yes * Community resources currently utilized None * Additional services required to return to the preadmission environment? No * Can the patient safely return to the preadmission environment? Yes * Has this patient been hospitalized within the prior 30 days at any hospital? No Last DP export: 06/18/20 6:15 p Patient Name: JULIO C CHAUDHARI Page [id number] at 1928 All edits/amendments must be made on the electronic document DICTATION DATE: 06/18/201926 FURNACE LOADER: PRASHANT 06/18/201926 RPT#: [id number] DC DATE: STATUS: ADM IN [facility] [address] [place] [address] END OF REPORT
--- NOTE | 2020-06-18 19:35 | MORECARE ---
CASE MANAGEMENT DISCHARGE SUMMARY PATIENT: JULIO C CHAUDHARI UNIT: [id number] ADM DATE: 06/08/20 AGE: 59 : 62 SEX: F ROOM/BED: D.2302 AUTHOR: ISMAEL,DOC PHYSICIAN: REFERRING PHYSICIAN: PAPA SUTTON MD DATE OF SERVICE: 06/18/20 Discharge Plan Patient Name: JULIO C CHAUDHARI Facility: [facility]:[place] : 1960 Planned Disposition: Anticipated Discharge Date: Discharge Date: Expected LOS: Initial Reviewer: [email or web address] Initial Review Date: 06/08/2020 Generated: 06/18/20 8:34 pm Comments DCP- Discharge Planning Updated by [email or web address]: Lizette Barragan on 06/18/20 6:[address] Patients ANDREY LOWERY called and left her information if needed for discharge planning. [place] [phone] ext [phone] [facility] will be the provider for discharge needs [phone] fax [phone] DCP- Discharge Planning Updated by [email or web address]: Lizette Barragan on 06/18/20 6:[address] LATE ENTRY 06/16/20 Patient Name: JULIO C CHAUDHARI Admission Status: Elective Accout number: [id number] Admission Date: 06-08-2020 : 1960 Admission Diagnosis:BENIGN NEOPLASM OF DUODENUM Attending: PAPA SUTTON Current LOS: 10 Anticipated DC Date: Planned Disposition: Primary Insurance: [facility] Discharge Planning Comments: CM called patient's daughter Sally to complete initial dc planning assessment. CM educated patient on the CM role and verbal consent given by patient to complete assessment. Patient lives at home with family. Patient is independent uses a rollator. At discharge patient plans to return home and feels this is a safe discharge. CM discussed availability of home health, rehab services, and medical equipment. Patient does use home 02 concentrator and trilogy at night (unknown provider) Patient will have family to transport home. Patient denied known discharge needs at this time. Sally was not willing to complete YANN for rehab at this time. She stated that she would have to speak with her mother because prior to surgery she had said that she didn't want rehab. CM will continue to follow and will assist as needed with dc plans/needs. Personal Lines Appraiser: Lizette Barragan DCPIA - Discharge Planning Initial Assessment Updated by [email or web address]: Lizette Barragan on 06/18/20 7:22 pm * How many steps to enter\exit or inside your home? * PCP Jose HEAD * [facility]acy [facility] * Preadmission Environment Home with Family * ADLs Independent * Equipment Ostomy Supplies * Other Equipment ROLLATOR, 02 CONS, TRILOGY * List name and contact numbers for known caregivers / representatives who currently or will assist patient after discharge: SALLY DELGADO - DAUGHTER - [phone] * Verbal permission to speak to the caregivers and representatives has been obtained from the patient. Yes * Community resources currently utilized None * Additional services required to return to the preadmission environment? No * Can the patient safely return to the preadmission environment? Yes * Has this patient been hospitalized within the prior 30 days at any hospital? No Last DP export: 06/18/20 6:28 p Patient Name: JULIO C CHAUDHARI Page [id number] at 1935 All edits/amendments must be made on the electronic document DICTATION DATE: 06/18/201933 SEAM PRESS OPERATOR: PRASHANT 06/18/201933 RPT#: [id number] DC DATE: STATUS: ADM IN [facility] [address] [place] [address] END OF REPORT
[2020-06-19] VITALS (24 sets, daily range): BP systolic 132–166; BP diastolic 65–89
[2020-06-19 10:26] LABS: BASOPHILS 0.2 % (0-2); EOSINOPHILS 0.7 % (0-7); HEMATOCRIT 20.6 % (36.0-48.0); IMMATURE GRANULOCYTES 1.5 % (0-5); LYMPHOCYTES 13.6 % (15-50); MCH 27.6 pg (26.0-34.0); MCHC 30.1 g/dL (31.0-37.0); MEAN PLATELET VOLUME 10.5 fL (7.4-10.4); RBC 2.25 10x6/uL (4.00-5.40); RDW 15.7 % (11.5-14.5); WBC 16.1 10x3/uL (4.8-10.8)
[2020-06-19 10:29] LABS: HEMOGLOBIN 6.2 g/dL (12-16); MCV 91.6 fL (80.0-100.0); PLATELET COUNT 423 10x3/uL (130-400)
[2020-06-19 10:33] LABS: ALBUMIN 1.1 g/dL (3.4-5.0); ANION GAP 3.7 mmol/L (8-16); BILIRUBIN - TOTAL 0.76 mg/dL (0.2-1.3); CALCIUM 7.7 mg/dL (8.5-10.1); CARBON DIOXIDE 37.3 mmol/L (21.0-32.0); CREATININE - SERUM 1.1 mg/dL (0.6-1.3); MAGNESIUM - SERUM 1.9 mg/dL (1.8-2.4); PROTEIN - SERUM 4.8 g/dL (6.4-8.2)
[2020-06-19 10:40] LABS: PHOSPHOROUS 2.5 mg/dL (2.5-4.9)
--- NOTE | 2020-06-19 10:51 | NUR ---
Nutrition follow-up: Chart and labs reviewed Pt continues with BIPAP; NPO Labs: Na, Cl, CO2 high, K low TPN formula adjusted; Na taken out; acetate decreased and K, Mg increased RDN following.
--- NOTE | 2020-06-19 13:00 | NUR ---
Off bipap at this time per Dr. Garcia's order. Placed on 10L O2 via high flow nc.
--- NOTE | 2020-06-19 19:45 | NUR ---
SUPINE IN BED, SPONTANEOUS EYE OPENING UPON VERBAL/TACTILE STIMULATION. NO VERBAL RESPONSE. DOES NOT FOLLOW COMMANDS. SOME GRUNTING NOTED AFTER ADJUSTING HER POSITION. HEART RATE 140s-160s. RESPIRATIONS 38BPM. SPO2 93% ON 7L HIGHFLOW. BP 142/104. TEMP 99F, AXILLARY. RN AND RT NOTIFIED. BIPAP REAPPLIED. HR LOWERED TO THE 90s, BP REASSESSED AT 155/78. RESPIRATIONS REMAIN ELEVATED. HEAVY BLANKETS REMOVED TO PREVENT TEMP FROM RISING. MIDLINE ABDOMINAL INCISION WELL APPROXIMATED. CLEAR YELLOW DRAINAGE APPEARS TO BE COLLECTING IN NAVAL CAVITY FROM INCISION. LUIS DRAINs NOTED TO BOTH SIDES OF UPPER ABDOMEN. LEFT LUIS HAS NO DRAINAGE, CURRENTLY. 50MLs GREEN/BROWN FLUID EMPTIED FROM RIGHT LUIS, COMPRESSED.
[2020-06-20] VITALS (72 sets, daily range): BP systolic 30–203; BP diastolic 20–102
--- NOTE | 2020-06-20 03:24 | NUR ---
I have reviewed this patient and I concur with the Shift Assessment completed by the Licensed Practical Nurse today this shift.
--- NOTE | 2020-06-20 04:39 | NUR ---
PATIENT APNEIC ON BIPAP. ABG OBTAINED. NONRESPONSIVE. SPOKE WITH DR. PADILLA. NEW ORDERS FOR INTUBATION. CALLED Nickolas WILSON PACKAGING LINE ATTENDANT FOR INTUBATION.
--- NOTE | 2020-06-20 04:45 | NUR ---
CALLED PTs EMERGENCY CONTACT, NETTE DELGADO(DAUGHTER), TO NOTIFY OF RESPIRATORY DEPRESSION AND ORDER FOR INTUBATION. DAUGHTER VERBALIZED UNDERSTANDING, INFORMED HER WE WILL NOTIFY HER OF ALL OTHER SIGNIFICANT CHANGES.
--- NOTE | 2020-06-20 05:08 | NUR ---
BRADYCARDIA PROGRESSING INTO ASYSTOLE NOTED ON CM, ACLS INITIATED-SEE CODE BLUE SHEET FOR DETAILS.
[2020-06-20 05:41] LABS: BASOPHILS 0.1 % (0-2); EOSINOPHILS 1.7 % (0-7); HEMATOCRIT 22.2 % (36.0-48.0); IMMATURE GRANULOCYTES 1.2 % (0-5); LYMPHOCYTES 12.5 % (15-50); MCH 27.6 pg (26.0-34.0); MCHC 29.7 g/dL (31.0-37.0); MCV 92.9 fL (80.0-100.0); MEAN PLATELET VOLUME 10.6 fL (7.4-10.4); MONOCYTES 3.7 % (2-11); NEUTROPHILS 80.8 % (40-80); PLATELET COUNT 445 10x3/uL (130-400); RBC 2.39 10x6/uL (4.00-5.40); RDW 15.6 % (11.5-14.5); WBC 18.5 10x3/uL (4.8-10.8)
[2020-06-20 05:42] LABS: HEMOGLOBIN 6.6 g/dL (12-16)
[2020-06-20 05:52] LABS: INR 1.27 (0.85-1.17); PROTIME 15.8 SECONDS (11.6-15.0)
[2020-06-20 05:53] LABS: APTT 31.5 SECONDS (22.8-39.4)
[2020-06-20 06:04] LABS: D-DIMER-QUANTITATIVE 10.69 ug/mLFEU (0.20-0.54)
[2020-06-20 06:06] LABS: ALBUMIN 1.1 g/dL (3.4-5.0); ALKALINE PHOSPHATASE 205 U/L (30-120); ALT (SGPT) 53 U/L (10-68); BILIRUBIN - TOTAL 0.99 mg/dL (0.2-1.3); CALC OSMOLALITY 315 mosm/kg (275-300); CALCIUM 7.7 mg/dL (8.5-10.1); CARBON DIOXIDE 39.4 mmol/L (21.0-32.0); CHLORIDE - SERUM 111 mmol/L (98-107); CREATINE KINASE 157 UL (21-215); GLUCOSE 96 mg/dL (74-106); PHOSPHOROUS 2.7 mg/dL (2.5-4.9); SODIUM 153 mmol/L (136-145); TROPONIN-I 0.053 ng/mL (0.000-0.060); UREA NITROGEN 47 mg/dL (7-18); eGFR NON AFRICAN AMERICAN 41 mL/min (90-120)
[2020-06-20 06:07] LABS: CREATININE - SERUM 1.4 mg/dL (0.6-1.3)
--- NOTE | 2020-06-20 06:31 | NUR ---
BRADYCARDIA PROGRESSING TO ASYSTOLE ON CM, ACLS INITIATED, SEE CODE BLUE SHEET.
--- NOTE | 2020-06-20 07:21 | NUR ---
Nutrition follow-up: Pt reintubated. Labs reviewed; Na, Cl, CO2 remain high; K low TPN formula adjusted RDN following.
--- NOTE | 2020-06-20 08:44 | NUR ---
PT'S DAUGHTER AND SON IN [place] IN TO SEE PT. UPDATED ON PT'S STATUS. VERIFIED AGAIN THAT THEY WANTED TO DISREGARD PT'S WISHES TO NOT RECEIVE BLOOD. 1ST UNIT IS INFUSING AT THIS TIME. CURRENT BP 63/29. HR 123. O2 SAT 88% ON VENT.
--- NOTE | 2020-06-20 10:40 | NUR ---
2ND UNIT OF PRBC TRANSFUSED.
--- NOTE | 2020-06-20 11:40 | NUR ---
UPDATED FAMILY IN WAITING ROOM.
--- NOTE | 2020-06-20 13:15 | NUR ---
PT DAUGHTER AND RAMAKRISHNA IN TO SEE PT. UPDATED.
[2020-06-20 15:29] LABS: HEMATOCRIT 28.2 % (36.0-48.0); HEMOGLOBIN 8.7 g/dL (12-16)
--- NOTE | 2020-06-20 23:09 | NUR ---
2100 DR. TORO CAME TO UNIT AND PLACED WOUND VAC ON ABD. DRY DRESSING PLACED OVER OTHER OPEN AREA TO ABD. PER M.D. 2130 BATH GIVEN, LINENS CHANGED. PT RUNNING FEVER 102.8 NOTIFIED NEW ODERS PLACED , WILL CONT. TO MONITOR
[2020-06-21] VITALS (89 sets, daily range): BP systolic 46–147; BP diastolic 19–78
--- NOTE | 2020-06-21 03:17 | NUR ---
PATIENT IN AFIB IN 170S THEN AFTER APPROX 3 MINS PT WENT IN TO A FLUTTER 2:1. CALLED DR. ZARAGOZA, ON CALLED FOR CARDIOLOGY, ORDER TO RESTART AMIO DRIP AT 1MG/MIN FOR PROTOCOL, NO BOLUS.
--- NOTE | 2020-06-21 03:40 | NUR ---
2229 SPOKE WITH FAMILY AND THEY HAVE STATED THAT PT. SON IS [place] HIS WAY FROM [place] AND WOULD LIKE FOR PT. TO REMAIN FULLCODE SO THAT SON CAN SEE HER AND THEN DISCUSS FURTHER OPTIONS
--- NOTE | 2020-06-21 07:00 | NUR ---
PT REPORT AT THIS TIME, PT ASSESSMENT COMPLETED NO CHANGES NOTED FROM NURSE REPORT. PT MAINTAINS STABLE V/S AT THIS TIME WITH MAXIUM VASSOPRESSER SUPPORT. PT ON VENT SUPPORT WITH NO SEDATION AT THIS TIME.
--- NOTE | 2020-06-21 07:45 | NUR ---
WOUND VAC DRESSING CHANGED DUE TO AIR LEAK, DRESSING SECURED WITH NO AIR LEAK AT THIS TIME
--- NOTE | 2020-06-21 09:05 | NUR ---
PT FAMILY AT THE BEDSIDE AND UPDATED ON PATIENTS COND.
--- NOTE | 2020-06-21 09:53 | NUR ---
Nutrition follow-up: Pt intubated, sedated. Several pressors in use TPN continues @ 40 ml/hr Labs reviewed Pt s/p code blue x 2 06/20 RDN following.
[2020-06-21 10:31] LABS: HEMATOCRIT 25.8 % (36.0-48.0); HEMOGLOBIN 8.1 g/dL (12-16); MCH 28.9 pg (26.0-34.0); MCHC 31.4 g/dL (31.0-37.0); MCV 92.1 fL (80.0-100.0); MEAN PLATELET VOLUME 11.2 fL (7.4-10.4); PLATELET COUNT 271 10x3/uL (130-400); RDW 16.1 % (11.5-14.5); WBC 38.8 10x3/uL (4.8-10.8)
--- NOTE | 2020-06-21 12:33 | NUR ---
OT NOTE: PT BACK ON VENT. DC OT ORDER..RECONSULT WHEN MEDICALLY STABLE. GEORGI LUCERO, OTR/L
[2020-06-21 13:41] LABS: EOSINOPHILS 1 % (0-7); HYPOCHROMASIA OCC; LYMPHOCYTES 8 % (15-50); MONOCYTES 9 % (2-11); NEUTROPHILS 70 % (40-80); PLATELET ESTIMATE NORMAL; ROULEAUX OCC
--- NOTE | 2020-06-21 19:57 | NUR ---
FAMILY AT BEDSIDE, STATES THEY ARE READY TO TERMINAL EXTUBATE. NEW ORDERS ARE PLACED AND WILL ADMINISTER MEDS PER ORDERS.
--- NOTE | 2020-06-21 21:47 | NUR ---
PT. HAS BEEN TERMINAL EXTUBATED WITH NO SIGNS OF DISCOMFORT.
--- NOTE | 2020-06-21 22:33 | NUR ---
2215 PT. HAS NO HEART BEAT. VERIFIED X2 NURSES DR. TORO NOTIFIED, ED TO UNIT TO PRONOUNCE AT 222. FAMILY REMAINS AT BEDSIDE. NAVID NOTIFIED AT 7097
--- NOTE | 2020-06-22 21:08 | MORECARE ---
CASE MANAGEMENT DISCHARGE SUMMARY PATIENT: JULIO C CHAUDHARI UNIT: [id number] ADM DATE: 06/08/20 AGE: 59 : 62 SEX: F ROOM/BED: D.2302 AUTHOR: ISMAEL,DOC PHYSICIAN: REFERRING PHYSICIAN: PAPA SUTTON MD DATE OF SERVICE: 06/22/20 Discharge Plan Patient Name: JULIO C CHAUDHARI Facility: [facility]:[place] : 1960 Planned Disposition: Anticipated Discharge Date: Discharge Date: 06/21/2020 Expected LOS: Initial Reviewer: [email or web address] Initial Review Date: 06/08/2020 Generated: 06/22/20 10:07 pm Comments DCP- Discharge Planning Updated by [email or web address]: Lizette Barragan on 06/18/20 6:[address] Patients ANDREY LOWERY called and left her information if needed for discharge planning. [place] [phone] [facility] [id number] [facility] will be the provider for discharge needs [phone] fax [phone] DCP- Discharge Planning Updated by [email or web address]: Lizette Barragan on 06/18/20 6:[address] LATE ENTRY 06/16/20 Patient Name: JULIO C CHAUDHARI Admission Status: Elective Accout number: [id number] Admission Date: 06-08-2020 : 1960 Admission Diagnosis:BENIGN NEOPLASM OF DUODENUM Attending: PAPA SUTTON Current LOS: 10 Anticipated DC Date: Planned Disposition: Primary Insurance: [facility] Discharge Planning Comments: CM called patient's daughter Sally to complete initial dc planning assessment. CM educated patient on the CM role and verbal consent given by patient to complete assessment. Patient lives at home with family. Patient is independent uses a rollator. At discharge patient plans to return home and feels this is a safe discharge. CM discussed availability of home health, rehab services, and medical equipment. Patient does use home 02 concentrator and trilogy at night (unknown provider) Patient will have family to transport home. Patient denied known discharge needs at this time. Sally was not willing to complete YANN for rehab at this time. She stated that she would have to speak with her mother because prior to surgery she had said that she didn't want rehab. CM will continue to follow and will assist as needed with dc plans/needs. Bioassayist: Lizette Barragan DCPIA - Discharge Planning Initial Assessment Updated by [email or web address]: Lizette Barragan on 06/18/20 7:22 pm * How many steps to enter\exit or inside your home? * PCP Jose HEAD * Pharmacy [facility] * Preadmission Environment Home with Family * ADLs Independent * Equipment Ostomy Supplies * Other Equipment ROLLATOR, 02 CONS, TRILOGY * List name and contact numbers for known caregivers / representatives who currently or will assist patient after discharge: SALLY DELGADO - DAUGHTER - [phone] * Verbal permission to speak to the caregivers and representatives has been obtained from the patient. Yes * Community resources currently utilized None * Additional services required to return to the preadmission environment? No * Can the patient safely return to the preadmission environment? Yes * Has this patient been hospitalized within the prior 30 days at any hospital? No Last DP export: 06/18/20 6:35 p Patient Name: JULIO C CHAUDHARI Page [id number] at 2108 All edits/amendments must be made on the electronic document DICTATION DATE: 06/22/202106 TIRE BUILDING SUPERVISOR: PRASHANT 06/22/202106 RPT#: [id number] DC DATE:06/21/20 STATUS: DIS IN [facility] [address] [place] [address] END OF REPORT
--- NOTE | 2020-06-24 14:22 | NUR ---
Per CMS Protocol, restraint report logged into data base.
== END 2020-06-21 22:27 | DRG 326 ==
LOC: D.SDCHOLD 06-04 09:30 → D.ICU 06-08 07:18 → D.SDCHOLD 06-08 09:00 → D.ICU 06-08 14:44
PROVIDERS: Internal Medicine Pulmonary Disease; Surgery; ADMIT Surgery; ATTEND Surgery
PROC: 0FB90ZZ Excision of Common Bile Duct, Open Approach (ICD-10-PCS; 2020-06-08)
PROC: 0FBG0ZZ Excision of Pancreas, Open Approach (ICD-10-PCS; principal; 2020-06-08 09:00)
PROC: 0DV40ZZ Restriction of Esophagogastric Junction, Open Approach (ICD-10-PCS; 2020-06-08 09:00)
PROC: 0FT40ZZ Resection of Gallbladder, Open Approach (ICD-10-PCS; 2020-06-08 09:00)
PROC: 5A1955Z Respiratory Ventilation, Greater than 96 Consecutive Hours (ICD-10-PCS; 2020-06-10)
PROC: 0BH17EZ Insertion of Endotracheal Airway into Trachea, Via Natural or Artificial Opening (ICD-10-PCS; 2020-06-10)
DX: D13.2 Benign neoplasm of duodenum (principal); A41.9 Sepsis, unspecified organism; R65.21 Severe sepsis with septic shock; J96.02 Acute respiratory failure with hypercapnia; J96.01 Acute respiratory failure with hypoxia; N17.0 Acute kidney failure with tubular necrosis; J69.0 Pneumonitis due to inhalation of food and vomit; N17.9 Acute kidney failure, unspecified; I47.1 Supraventricular tachycardia; D62 Acute posthemorrhagic anemia; E87.2 Acidosis; R57.1 Hypovolemic shock; K21.9 Gastro-esophageal reflux disease without esophagitis; K22.70 Barrett's esophagus without dysplasia; E87.5 Hyperkalemia; J43.9 Emphysema, unspecified; G47.33 Obstructive sleep apnea (adult) (pediatric); E03.9 Hypothyroidism, unspecified; E83.51 Hypocalcemia